=== PATIENT | female | born 1995 ===

== ENCOUNTER 2018-07-01 21:36 | Outpatient (CLI) | payer OTHER ==
[2018-07-01] MEDS ORDERED: PRENATABS RX T1 EACH PO (22:12)
== END 2018-07-02 13:04 | disposition home or self-care (01) ==
LOC: OBS/DEL 21:36
DX: O60.03 Preterm labor without delivery, third trimester (principal); O36.5930 Maternal care for other known or suspected poor fetal growth, third trimester, not applicable or unspecified; Z34.03 Encounter for supervision of normal first pregnancy, third trimester

== ENCOUNTER 2018-07-03 16:27 | Inpatient (IN) | payer OTHER ==
[~2018-07-03] VITALS: Ht 157.5 cm; Wt 61.7 kg
[~2018-07-03 16:27] MED LIST: PRENATABS RX T1 EACH PO
== END 2018-07-05 12:08 | DRG 775 ==
LOC: LDR 16:27 → OB/GYN 16:27
PROC: 10E0XZZ Delivery of Products of Conception, External Approach (ICD-10-PCS; principal; 2018-07-03)
PROC: 0HQ9XZZ Repair Perineum Skin, External Approach (ICD-10-PCS; 2018-07-03)
PROC: 10907ZC Drainage of Amniotic Fluid, Therapeutic from Products of Conception, Via Natural or Artificial Opening (ICD-10-PCS; 2018-07-03)
PROC: 4A1HXCZ Monitoring of Products of Conception, Cardiac Rate, External Approach (ICD-10-PCS; 2018-07-03)
DX: O60.14X0 Preterm labor third trimester with preterm delivery third trimester, not applicable or unspecified (principal); O70.0 First degree perineal laceration during delivery; Z3A.36 36 weeks gestation of pregnancy; Z37.0 Single live birth